=== PATIENT | male | born 1980 | race African-American/Black ===

== ENCOUNTER 2017-02-06 18:15 | Emergency (ER) | payer OTHER ==
[2017-02-06 19:34] VITALS: BP 169/100; PULSE 64; TEMP 98.9; BMI 29.7
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
[2017-02-06] MEDS ORDERED: KETOROLAC TROMETHAMINE 60 MG/2 ML VIAL IM ONE (20:42)
[2017-02-06] MEDS ORDERED: KETOROLAC TROMETHAMINE 60 MG/2 ML VIAL ONE (20:43)
== END 2017-02-06 21:54 | disposition home or self-care (01) ==
LOC: FER 18:15
PROC: 3E0233Z Introduction of Anti-inflammatory into Muscle, Percutaneous Approach (ICD-10-PCS; principal; 2017-02-06)
DX: S46.912A Strain of unspecified muscle, fascia and tendon at shoulder and upper arm level, left arm, initial encounter (principal); S76.911A Strain of unspecified muscles, fascia and tendons at thigh level, right thigh, initial encounter; V43.52XA Car driver injured in collision with other type car in traffic accident, initial encounter; Y93.89 Activity, other specified; Y92.410 Unspecified street and highway as the place of occurrence of the external cause
CPT/HCPCS: 72050-TC; 73030-TC-LT; 99282-25

== ENCOUNTER 2017-08-01 11:19 | Emergency (ER) | payer SELFPAY ==
[2017-08-01 11:23] VITALS: BP 153/86; PULSE 92; TEMP 98.9; BMI 29.6
--- NOTE | 2017-08-01 11:39 | PDOC ---
History of Present Illness - General Chief Complaint: Eye Problem Stated Complaint: REDNESS, ITCHY EYES Time Seen by Provider: 08/01/17 11:24 - History of Present Illness Initial Comments: 08/01/17 11:38 37yo M hx HTN p/w b/l eye redness a/w itchiness and clear discharge. Reports since Monday he has woken up with crusty eyes and swelling. The swelling has tended to resolve as the day progresses. He reports similar symptoms over at which point he was also seen in the ER and was given tobramycin drops and Z-Marvel which she completed. He reports using the tobramycin drops over the last few days for the symptoms but it has not helped. 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 He also reports a nonproductive cough, sore throat, and runny nose over the weekend that have mostly resolved. Denies any fevers, chills, chest pain, shortness of breath, abdominal pain, nausea, vomiting, diarrhea, headache, focal weakness or numbness. Past History - Past Medical History Allergies/Adverse Reactions: Allergies Allergy/AdvReac Type Severity Reaction Status Date / Time No Known Allergies Allergy Verified 08/01/17 11:20 Home Medications: Ambulatory Orders Bp Pill 1 tab PO DAILY 08/01/17 COPD: No HTN: Yes - Suicide/Smoking/Psychosocial Hx Smoking Status: No Smoking History: Current some day smoker Have you smoked in the past 12 months: Yes Number of Cigarettes Smoked Daily: 1 Information on smoking cessation initiated: Yes 'Breaking Loose' booklet given: 08/01/17 Hx Alcohol Use: (social) Drug/Substance Use Hx: No Substance Use Type: Alcohol Review of Systems - Review of Systems Comments:: 08/01/17 11:57 GENERAL/CONSTITUTIONAL: No fever or chills. No weakness. HEAD, EYES, EARS, NOSE AND THROAT: +eye itchiness and redness. No ear pain or discharge. No sore throat. GASTROINTESTINAL: No nausea, vomiting, diarrhea or constipation. GENITOURINARY: No dysuria, frequency, or change in urination. CARDIOVASCULAR: No chest pain or shortness of breath. RESPIRATORY: No cough, wheezing, or hemoptysis. MUSCULOSKELETAL: No joint or muscle swelling or pain. No neck or back pain. SKIN: No rash NEUROLOGIC: No headache, vertigo, loss of consciousness, or change in strength/ sensation. ENDOCRINE: No increased thirst. No abnormal weight change. HEMATOLOGIC/LYMPHATIC: No anemia, easy bleeding, or history of blood clots. ALLERGIC/IMMUNOLOGIC: No hives or skin allergy. *Physical Exam - Vital Signs Last Vital Signs Temp Pulse Resp BP Pulse Ox 98.9 F 92 H 18 153/86 97 08/01/17 11:20 08/01/17 11:20 08/01/17 11:20 08/01/17 11:20 08/01/17 11:20 - Physical Exam Comments: 08/01/17 11:59 GENERAL: Awake, alert, and fully oriented, in no acute distress HEAD: No signs of trauma EYES: PERRLA, EOMI, conjunctiva erythematous b/l with clear discharge from eyes. 20/20 visual acuity OU, normal visual tubbs ENT: Auricles normal inspection, hearing grossly normal, nares patent, oropharynx clear without exudates. Moist mucosa NECK: Normal ROM, supple, no lymphadenopathy, JVD, or masses LUNGS: Breath sounds equal, clear to auscultation bilaterally. No wheezes, and no crackles HEART: Regular rate and rhythm, normal S1 and S2, no murmurs, rubs or gallops ABDOMEN: Soft, nontender, normoactive bowel sounds. No guarding, no rebound. No masses EXTREMITIES: Normal range of motion, no edema. No clubbing or cyanosis. No cords, erythema, or tenderness NEUROLOGICAL: Normal speech, cranial nerves intact, negative pronator drift, 5/ 5 strength in all 4 extremities, normal sensation to light touch in all 4 extremities, normal cerebellar exam, normal gait, normal reflexes and tone SKIN: Warm, Dry, normal turgor, no rashes or lesions noted. Medical Decision Making - Medical Decision Making 08/01/17 12:01 37-year-old male with a history of hypertension presents with viral syndrome and likely viral conjunctivitis. Will prescribe polymyxin drops. I spoke with the staff at flute grinder Dr. Quintana's office and the patient can be seen today or tomorrow for follow-up given recurrence of conjunctivitis within 1 month. I have provided the patient with the office number to call and make the appointment at his convenience. I will also provide the patient with a work note for today. I discussed the physical exam findings, ancillary test results and final diagnoses with the patient. I answered all of the patient's questions. The patient was satisfied with the care received and felt comfortable with the discharge plan and treatment plan. The patient will call their primary care physician within 24 hours to arrange follow-up and will return to the Emergency Department with any new, persistent or worsening symptoms. *DC/Admit/Observation/Transfer Diagnosis at time of Disposition: Conjunctivitis, [place] eye disease of both eyes - Discharge Dispostion Disposition: HOME Condition at time of disposition: Stable Admit: No - Referrals Referrals: Marcelino Damon MD [Primary Care Provider] - - Patient Instructions Printed Discharge Instructions: DI for Conjunctivitis, DI for Viral Syndrome Additional Instructions: Please call Dr. Quintana's office today at [phone] for a follow up appointment with the flute grinder in 1-2 days. Your blood pressure was elevated in the emergency department, please follow up with your primary care doctor within 1 week. Return to the emergency department if you have any new, worsening, or concerning symptoms. - Post Discharge Activity Forms/Work/School Notes: Back to Work - Attestations Physician Attestion: 08/01/17 12:08 I, Dr. Lidia Matos MD, attest that this document has been prepared under my direction and personally reviewed by me in its entirety. I further attest, that it accurately reflects all work, treatment, procedures and medical decision -making performed by me.
== END 2017-08-01 12:19 | disposition home or self-care (01) ==
LOC: FER 11:19
DX: H10.023 Other mucopurulent conjunctivitis, bilateral (principal); F17.210 Nicotine dependence, cigarettes, uncomplicated; I10 Essential (primary) hypertension
CPT/HCPCS: 99282-25

== ENCOUNTER 2018-10-27 21:11 | Emergency (ER) | payer SELFPAY ==
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
[2018-10-27] MEDS ORDERED: KETOROLAC TROMETHAMINE 60 MG/2 ML VIAL IM ONE (21:44)
[2018-10-27 21:47] VITALS: BP 168/114; PULSE 91; TEMP 98.3; BMI 29.0
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
[2018-10-27] MEDS ORDERED: KETOROLAC TROMETHAMINE 60 MG/2 ML VIAL ONE (21:48)
== END 2018-10-27 21:53 | disposition home or self-care (01) ==
LOC: FER 21:11
PROC: 3E0233Z Introduction of Anti-inflammatory into Muscle, Percutaneous Approach (ICD-10-PCS; principal; 2018-10-27)
DX: M25.512 Pain in left shoulder (principal); I10 Essential (primary) hypertension
CPT/HCPCS: 99282-25

== ENCOUNTER 2019-02-25 15:24 | Emergency (ER) | payer OTHER ==
--- NOTE | 2019-02-25 15:28 | PDOC ---
History of Present Illness - General Chief Complaint: Urinary Problem Stated Complaint: GREEN PENILE D/C Time Seen by Provider: 02/25/19 15:27 - History of Present Illness Initial Comments: 02/25/19 16:02 38 years old no significant past medical history presents to the ED after having unprotected sexual intercourse with the next girlfriend presents to the ED with 2 day history of pain and green discharge from urethra No fever no chills no systemic symptoms symptoms are moderate persistent concent no exacerbating or alleviating factors. Past History - Past Medical History Allergies/Adverse Reactions: Allergies Allergy/AdvReac Type Severity Reaction Status Date / Time No Known Allergies Allergy Verified 02/25/19 15:25 Home Medications: Ambulatory Orders Amlodipine Besylate [Norvasc -] 10 mg PO DAILY 02/25/19 COPD: No DVT: No HTN: Yes - Suicide/Smoking/Psychosocial Hx Smoking Status: No Smoking History: Current some day smoker Have you smoked in the past 12 months: Yes Number of Cigarettes Smoked Daily: 1 'Breaking Loose' booklet given: 08/01/17 Hx Alcohol Use: (social) Drug/Substance Use Hx: No Substance Use Type: Alcohol Review of Systems - Review of Systems Comments:: 02/25/19 16:02 ROS: A complete review of 10 out of 10 review of systems is taken and is negative apart from what is previously mentioned below and in the HPI. *Physical Exam - Physical Exam Comments: 02/25/19 16:03 Vitals: Triage Vital signs reviewed General Appearance: no acute distress, well nourished well developed, Abdomen: Soft, non distended, normal bowel sounds, non tender to palpation Genitourinary: Thick discharge from tip of meatus cultured Rectal: Exam deferred Psych: normal mood, normal affect Medical Decision Making - Medical Decision Making 02/25/19 16:04 History and examination concerning for newly contracted STD patient advised to inform his current partner patient empirically treated culture sent we'll follow up culture Findings, the need for follow-up and strict return instructions discussed with patient. *DC/Admit/Observation/Transfer Diagnosis at time of Disposition: Penile discharge - Discharge Dispostion Disposition: HOME Condition at time of disposition: Stable Decision to Admit order: No - Referrals Referrals: [facility] [place] [Provider Group] - Patient Instructions Printed Discharge Instructions: How to Detect and Treat STDs Additional Instructions: No sexual intercourse for 7-10 days. If still having symptoms after 1 week please follow up in our clinic to become retested. You will be called if your culture is positive. Is advised that you informing your partner of the possibility of sexual transmitted disease. - Post Discharge Activity
[2019-02-25 15:30] VITALS: BP 153/90; PULSE 70; TEMP 98.9; BMI 28.6
[2019-02-25] MEDS ORDERED: AZITHROMYCIN 500 MG TABLET PO ONE (15:48)
[2019-02-25] MEDS ORDERED: AZITHROMYCIN 500 MG TABLET ONE (15:55)
== END 2019-02-25 16:23 | disposition home or self-care (01) ==
LOC: FER 15:24
DX: N50.9 Disorder of male genital organs, unspecified (principal); F17.210 Nicotine dependence, cigarettes, uncomplicated; I10 Essential (primary) hypertension
CPT/HCPCS: 36415; 87491; 87591; 87661; 99281-25

== ENCOUNTER 2019-03-02 13:37 | Emergency (ER) | payer OTHER ==
[2019-03-02 13:53] VITALS: BP 137/88; PULSE 76; TEMP 98.7; BMI 28.1
--- NOTE | 2019-03-02 14:20 | PDOC ---
History of Present Illness - General Chief Complaint: Pain Stated Complaint: LEFT FOOT SWELLING Time Seen by Provider: 03/02/19 14:19 - History of Present Illness Initial Comments: 03/02/19 15:01 HPI: 38 y/o M with pmh of HTN and concern for gout presenting with 2 days of left foot pain associated with swelling and mild erythema over the dorsal aspect of his foot. His pain has not been relieved by advil, ice, warm compressions over the past 2 days. Pain is worse with walking. He denies any trauma, fever, chills , animal bites or bug bites. He reports having a similar episode a couple years ago for which he presented here and workup revealed possible gout. PMHx: as noted above ROS: as noted SHx: Denies Etoh, IVDA, tobacco use Allergies: NKDA Past History - Past Medical History Allergies/Adverse Reactions: Allergies Allergy/AdvReac Type Severity Reaction Status Date / Time No Known Allergies Allergy Verified 03/02/19 13:39 Home Medications: Ambulatory Orders Amlodipine Besylate [Norvasc -] 10 mg PO DAILY 02/25/19 Ketorolac Tromethamine [Toradol] 10 mg PO Q6H #20 tablet 03/02/19 COPD: No DVT: No HTN: Yes - Suicide/Smoking/Psychosocial Hx Smoking Status: No Smoking History: Never smoked Have you smoked in the past 12 months: No Number of Cigarettes Smoked Daily: 1 Information on smoking cessation initiated: No 'Breaking Loose' booklet given: 02/25/19 Hx Alcohol Use: No Drug/Substance Use Hx: No Substance Use Type: Alcohol Review of Systems - Review of Systems Comments:: 03/07/19 12:10 GENERAL/CONSTITUTIONAL: No fever or chills. No weakness. HEAD, EYES, EARS, NOSE AND THROAT: No change in vision. No ear pain or discharge. No sore throat. CARDIOVASCULAR: No chest pain or shortness of breath RESPIRATORY: No cough, wheezing, or hemoptysis. GASTROINTESTINAL: No nausea, vomiting, diarrhea or constipation. GENITOURINARY: No dysuria, frequency, or change in urination. MUSCULOSKELETAL: + foot pain and swelling SKIN: No rash NEUROLOGIC: No headache, vertigo, loss of consciousness, or change in strength/ sensation. ENDOCRINE: No increased thirst. No abnormal weight change HEMATOLOGIC/LYMPHATIC: No anemia, easy bleeding, or history of blood clots. ALLERGIC/IMMUNOLOGIC: No hives or skin allergy. *Physical Exam - Vital Signs Last Vital Signs Temp Pulse Resp BP Pulse Ox 98.7 F 76 20 137/88 98 03/02/19 13:38 03/02/19 13:38 03/02/19 13:38 03/02/19 13:38 03/02/19 13:38 - Physical Exam Comments: 03/07/19 12:11 GENERAL: Awake, alert, and fully oriented, in mild acute distress HEAD: No signs of trauma, normocephalic, atraumatic EYES: PERRLA, EOMI, sclera anicteric, conjunctiva clear ENT: Auricles normal inspection, hearing grossly normal, nares patent, oropharynx clear without exudates. Moist mucosa NECK: Normal ROM, supple, no lymphadenopathy, JVD, or masses LUNGS: No distress, speaks full sentences, clear to auscultation bilaterally HEART: Regular rate and rhythm, normal S1 and S2, no murmurs, rubs or gallops, peripheral pulses normal and equal bilaterally. ABDOMEN: Soft, nontender, normoactive bowel sounds. No guarding, no rebound. No masses EXTREMITIES : left foot with edema distal to the ankle, 3x3cm area of erythema over the dorsal aspect of the foot, tenderness to palpation throughout foot most notably over the medial and lateral aspects, sensation intact, str 5/5 NEUROLOGICAL: Cranial nerves II through XII grossly intact. Normal speech, normal gait, no focal sensorimotor deficits SKIN: Warm, Dry, normal turgor, no rashes or lesions noted Medical Decision Making - Medical Decision Making 03/07/19 12:13 38 y/o M with pmh of HTN presenting with 2 days of left foot pain associated with swelling and mild erythema over the dorsal aspect of his foot consistent with previous episode of gout. -60mg toradol -recommend low purine diet to prevent further gout attacks *DC/Admit/Observation/Transfer Diagnosis at time of Disposition: Gout - Discharge Dispostion Disposition: HOME Condition at time of disposition: Good - Prescriptions Prescriptions: Ketorolac Tromethamine [Toradol] 10 mg PO Q6H #20 tablet - Referrals Referrals: Marcelino Damon MD [Non Staff, Medical] - - Patient Instructions Printed Discharge Instructions: Low-Purine Diet, DI for Gout - Post Discharge Activity
--- NOTE | 2019-03-02 14:23 | PDOC ---
Attending Attestation - Resident Resident Name: Diaz,Delmer - ED Attending Attestation I have performed the following: I have examined & evaluated the patient, The case was reviewed & discussed with the resident, I agree w/resident's findings & plan, Exceptions are as noted - HPI HPI: 03/02/19 14:47 Pain swelling and erythema over the dorsum of the foot. No trauma. No fever or chills or skin lesions which would indicate infection. No diuretics, but alcohol intake makes gout likely 03/02/19 14:54 Upon review of the old record, patient was treated here for gout in 2018 with a uric acid of 8.2 and a negative x-ray. - Physicial Exam PE: 03/02/19 14:48 PE is normal except for erythema warmth and tenderness over the MTP joints, dorsum right foot. - Medical Decision Making 03/02/19 14:54 Assessment: Flareup of pre-existing gout Plan: Symptomatic treatment with nonsteroidals, no alcohol, low purine diet, and follow-up primary physician. Pain improved and ambulating adequately discharge to follow-up as directed.
[2019-03-02] MEDS ORDERED: KETOROLAC TROMETHAMINE 60 MG/2 ML VIAL IM ONE (14:54)
[2019-03-02] MEDS ORDERED: KETOROLAC TROMETHAMINE 60 MG/2 ML VIAL ONE (14:56)
== END 2019-03-02 15:35 | disposition home or self-care (01) ==
LOC: FER 13:37
PROC: 3E0233Z Introduction of Anti-inflammatory into Muscle, Percutaneous Approach (ICD-10-PCS; principal; 2019-03-02)
DX: R05 Cough (principal); M10.9 Gout, unspecified
CPT/HCPCS: 99281-25

== ENCOUNTER 2021-03-01 20:30 | Emergency (ER) | payer OTHER ==
[2021-03-01 21:03] VITALS: BP 135/77; PULSE 82; TEMP 99; BMI 28.3
[2021-03-01] MEDS ORDERED: KETOROLAC TROMETHAMINE 30 MG/1 ML VIAL IM ONE (21:05)
[2021-03-01] MEDS ORDERED: KETOROLAC TROMETHAMINE 30 MG/1 ML VIAL ONE (21:56)
== END 2021-03-01 23:37 | disposition home or self-care (01) ==
LOC: FER 20:30 → SUPCPDRO 20:30 → FER 23:37
PROC: 3E0233Z Introduction of Anti-inflammatory into Muscle, Percutaneous Approach (ICD-10-PCS; principal; 2021-03-01)
DX: M25.551 Pain in right hip (principal); M54.5 Low back pain
CPT/HCPCS: 70450-TC; 71046-TC-FY; 72125-TC; 72131-TC; 73070-TC-LT-FY; 73130-TC-LT-FY; 73130-TC-RT-FY; 73523-TC-FY; 99285-25

== ENCOUNTER 2021-03-15 23:46 | Emergency (ER) | payer OTHER ==
[2021-03-16] MEDS ORDERED: DIPHTH,PERTUSS(ACELL),TET 0.5 ML DISP.SYRIN IM ONE ×2 (00:03→00:32)
[2021-03-16] MEDS ORDERED: ACETAMINOPHEN INJECTION 100 ML IVPB ONE (00:05)
[2021-03-16 00:07] VITALS: TEMP 98; BMI 29.0
[2021-03-16] MEDS ORDERED: ACETAMINOPHEN 1000 MG/100 ML VIAL IVPB ONE (00:08)
[2021-03-16] MEDS ORDERED: CLINDAMYCIN HCL 300 MG CAPSULE PO ONE (00:25)
[2021-03-16] MEDS ORDERED: CLINDAMYCIN HCL 150 MG CAPSULE (FP) ONE (00:31)
[2021-03-16 00:36] LABS: BASO % 0.7 % (0-2.0); EOS % 0.5 % (0-4.5); HEMATOCRIT 44.8 % (35.4-49); HEMOGLOBIN 15.3 GM/dL (11.7-16.9); LYMPH % 24.9 % (8-40); MCH 30.7 pg (25.7-33.7); MCHC 34.3 g/dl (32.0-35.9); MEAN CELL VOLUME 89.6 fl (80-96); MEAN PLT VOLUME 7.8 fl (7.5-11.1); MONO % 6.1 % (3.8-10.2); NEUT % 67.8 % (42.8-82.8); PLATELET COUNT 239 10^3/uL (134-434); RDW 14.1 % (11.9-15.9); WHITE BLOOD COUNT 7.8 K/mm3 (4.0-10.0)
[2021-03-16 00:46] LABS: INR 0.97 (0.83-1.09)
[2021-03-16 00:57] LABS: ALBUMIN 4.2 g/dl (3.4-5.0); CALCIUM 8.9 mg/dL (8.5-10.1)
[2021-03-16 00:58] LABS: BLOOD UREA NITROGEN 10.4 mg/dL (7-18)
[2021-03-16 01:00] LABS: CREATININE 1.1 mg/dL (0.55-1.3)
[2021-03-16 01:02] LABS: BILIRUBIN,TOTAL 0.2 mg/dL (0.2-1); TOT PROT 7.8 g/dl (6.4-8.2)
[2021-03-16 01:20] VITALS: BP 139/88; PULSE 71
== END 2021-03-16 01:45 | disposition left against medical advice (07) ==
LOC: JER 23:46
PROC: 3E0234Z Introduction of Serum, Toxoid and Vaccine into Muscle, Percutaneous Approach (ICD-10-PCS; principal; 2021-03-16)
PROC: 3E033NZ Introduction of Analgesics, Hypnotics, Sedatives into Peripheral Vein, Percutaneous Approach (ICD-10-PCS; 2021-03-16)
DX: S71.132A Puncture wound without foreign body, left thigh, initial encounter (principal)
CPT/HCPCS: 36415; 73706-TC-RT; 80053; 80307; 85025; 85610; 85730; 90471; 96374; 99284-25; J0131

== ENCOUNTER 2021-03-22 23:02 | Emergency (ER) | payer OTHER ==
[2021-03-22 23:16] VITALS: BP 148/96; PULSE 104; TEMP 98.5; BMI 27.3
== END 2021-03-23 01:11 | disposition home or self-care (01) ==
LOC: FER 23:02
DX: S70.12XA Contusion of left thigh, initial encounter (principal)
CPT/HCPCS: 99281-25

== ENCOUNTER 2022-01-07 07:32 | Emergency (ER) | payer OTHER ==
[2022-01-07 07:47] VITALS: BP 156/95; PULSE 100; TEMP 98.6; BMI 30.5
[2022-01-07] MEDS ORDERED: LIDOCAINE 5% TOPICAL PATCH TP ONE (08:15)
[2022-01-07] MEDS ORDERED: diazePAM 5 MG TABLET PO ONE (08:15)
[2022-01-07] MEDS ORDERED: LIDOCAINE 5% TOPICAL PATCH ONE (08:26)
[2022-01-07] MEDS ORDERED: diazePAM 5 MG TABLET ONE (08:26)
[2022-01-07] MEDS ORDERED: LIDOCAINE PATCH REMOVAL MC SCH (22:00)
== END 2022-01-07 08:47 | disposition home or self-care (01) ==
LOC: JER 07:32
DX: R10.9 Unspecified abdominal pain (principal)
CPT/HCPCS: 71046-TC-FY; 93005; 93010; 99284-25

== ENCOUNTER 2024-01-01 03:59 | Emergency (ER) | payer OTHER ==
[2024-01-01 04:08] VITALS: TEMP 98; BMI 23.5
[2024-01-01] MEDS ORDERED: FLUORESCEIN NA 1 EA STRIP ONE (04:46)
[2024-01-01] MEDS ORDERED: TETRACAINE 0.5% OPHTH SOLN 2 ML BOTTLE ONE (04:46)
[2024-01-01] MEDS ORDERED: ACETAMINOPHEN 325 MG TABLET (FP) ONE (04:55)
[2024-01-01] MEDS: TETRACAINE 0.5% HCL 0.6ML DROPPER.BOTTLE OD ONE (05:13)
[2024-01-01] MEDS: FLUORESCEIN NA 1 EA STRIP OD ONE (05:13)
[2024-01-01] MEDS: ACETAMINOPHEN 325 MG TABLET (FP) PO ONE (05:14)
[2024-01-01] MEDS: OFLOXACIN 0.3% OPHTHALMIC SOLUTION 5 ML BOTTLE OD ONE (05:47)
[2024-01-01 08:22] VITALS: BP 136/75; PULSE 66; RESP 19
== END 2024-01-01 09:30 | disposition home or self-care (01) ==
LOC: JER 03:59
DX: S00.212A Abrasion of left eyelid and periocular area, initial encounter (principal); H57.12 Ocular pain, left eye; Y04.8XXA Assault by other bodily force, initial encounter
CPT/HCPCS: 70450-TC; 99284-25